=== PATIENT | female | born 1960 | race Two or more races ===

== ENCOUNTER 2020-11-01 14:58 | Emergency (ER) | payer OTHER ==
[~2020-11-01] VITALS: Ht 157.5 cm; Wt 52.6 kg
[~2020-11-01 14:58] MED LIST: CLONAZEPAM0.5 MG PO; COZAAR50 MG; CYMBALTA60 MG PO; EVISTA60 MG PO; LANTUS100 U/ML; NOVOLOG100 U/M1; WELLBUTRIN SR200 MG PO
== END 2020-11-01 16:37 | disposition home or self-care (01) ==
LOC: ER 14:58
DX: G89.11 Acute pain due to trauma (principal); M25.561 Pain in right knee; M79.672 Pain in left foot; M25.562 Pain in left knee

== ENCOUNTER 2020-11-04 14:10 | Outpatient (CLI) | payer OTHER | END 2020-11-04 14:38 | disposition home or self-care (01) | LOC: RAD 14:10 | PROVIDERS: ATTEND Internal Medicine | DX: I11.9 Hypertensive heart disease without heart failure (principal) ==

== ENCOUNTER 2020-12-09 13:44 | Emergency (ER) | payer OTHER ==
[~2020-12-09] VITALS: Ht 157.5 cm; Wt 52.2 kg
[2020-12-09] MEDS ORDERED: TOPROL XL25 M1 (14:25)
[2020-12-09] MEDS ORDERED: ENALAPRIL MALEA10 MG (14:25)
[2020-12-09] MEDS ORDERED: KETO10TA2 PO (18:04)
[2020-12-09] MEDS ORDERED: ORPHENADRINE C100 MG PO (18:04)
== END 2020-12-09 18:14 | disposition home or self-care (01) ==
LOC: ER 13:44
DX: M25.551 Pain in right hip (principal)

== ENCOUNTER 2020-12-14 10:50 | Emergency (ER) | payer OTHER ==
[~2020-12-14] VITALS: Ht 160 cm; Wt 52.2 kg
[~2020-12-14 10:50] MED LIST changes: +ENALAPRIL MALEA10 MG; +KETO10TA2 PO; +ORPHENADRINE C100 MG PO; +TOPROL XL25 M1
== END 2020-12-14 14:40 | disposition home or self-care (01) ==
LOC: ER 10:50
DX: S00.03XA Contusion of scalp, initial encounter (principal); M54.2 Cervicalgia; W18.09XA Striking against other object with subsequent fall, initial encounter; Y93.89 Activity, other specified; Y92.018 Other place in single-family (private) house as the place of occurrence of the external cause; Y99.8 Other external cause status

== ENCOUNTER 2021-02-27 13:43 | Emergency (ER) | payer OTHER ==
[~2021-02-27] VITALS: Ht 157.5 cm; Wt 52.6 kg
== END 2021-02-27 17:10 | disposition home or self-care (01) ==
LOC: ER 13:43
DX: S60.222A Contusion of left hand, initial encounter (principal); W22.8XXA Striking against or struck by other objects, initial encounter; Y93.01 Activity, walking, marching and hiking; Y92.488 Other paved roadways as the place of occurrence of the external cause; Y99.8 Other external cause status

== ENCOUNTER 2021-03-12 08:39 | Emergency (ER) | payer OTHER ==
[~2021-03-12] VITALS: Ht 157.5 cm; Wt 53.1 kg
[2021-03-12] MEDS ORDERED: BUSPIRONE HCL10 MG PO (09:17)
[2021-03-12] MEDS ORDERED: GABAPENTIN300 M2 PO (09:17)
[2021-03-12] MEDS ORDERED: VITAMIN D310 MCG/1 M (09:18)
[2021-03-12] MEDS ORDERED: SEMGLEE100 UNIT/1 (09:18)
[2021-03-12] MEDS ORDERED: ADMELOG100 UNIT/1 SQ (09:18)
[2021-03-12] MEDS ORDERED: TOPROL XL25 M1 PO (09:19)
== END 2021-03-12 13:49 | disposition home or self-care (01) ==
LOC: ER 08:39
DX: B34.9 Viral infection, unspecified (principal); R09.81 Nasal congestion; R05 Cough; R53.81 Other malaise; Z11.52 Encounter for screening for COVID-19

== ENCOUNTER 2021-03-14 19:24 | Emergency (ER) | payer OTHER ==
[~2021-03-14] VITALS: Ht 157.5 cm; Wt 52.6 kg
[~2021-03-14 19:24] MED LIST changes: +ADMELOG100 UNIT/1 SQ; +BUSPIRONE HCL10 MG PO; +GABAPENTIN300 M2 PO; +SEMGLEE100 UNIT/1; +TOPROL XL25 M1 PO; +VITAMIN D310 MCG/1 M
[2021-03-14] MEDS ORDERED: BUDESONIDE0.5 MG/2 M IH (22:26)
[2021-03-14] MEDS ORDERED: MUCINEX DM ER1 EAC1 PO (22:26)
[2021-03-14] MEDS ORDERED: LEVALBUTER0.63 MG/3 IH (22:26)
[2021-03-14] MEDS ORDERED: ZYRTEC10 MG PO (22:26)
== END 2021-03-14 23:25 | disposition home or self-care (01) ==
LOC: ER 19:24
DX: J40 Bronchitis, not specified as acute or chronic (principal); J06.9 Acute upper respiratory infection, unspecified; B34.9 Viral infection, unspecified

== ENCOUNTER 2021-05-11 12:38 | Emergency (ER) | payer OTHER ==
[~2021-05-11] VITALS: Ht 157.5 cm; Wt 53.1 kg
[~2021-05-11 12:38] MED LIST changes: +BUDESONIDE0.5 MG/2 M IH; +LEVALBUTER0.63 MG/3 IH; +MUCINEX DM ER1 EAC1 PO; +ZYRTEC10 MG PO
== END 2021-05-11 13:13 | disposition home or self-care (01) ==
LOC: ER 12:38
DX: S61.441A Puncture wound with foreign body of right hand, initial encounter (principal); W45.8XXA Other foreign body or object entering through skin, initial encounter; Y93.89 Activity, other specified; Y92.89 Other specified places as the place of occurrence of the external cause; Y99.8 Other external cause status

== ENCOUNTER 2021-07-03 15:51 | Emergency (ER) | payer OTHER ==
[~2021-07-03] VITALS: Ht 157.5 cm; Wt 51.7 kg
== END 2021-07-04 10:54 | disposition home or self-care (01) ==
LOC: ER 15:51
DX: A05.9 Bacterial foodborne intoxication, unspecified (principal)

== ENCOUNTER 2021-08-25 15:07 | Outpatient (CLI) | payer OTHER | END 2021-08-25 15:18 | disposition home or self-care (01) | LOC: RAD 15:07 | PROVIDERS: ATTEND Internal Medicine | DX: R05.8 Other specified cough (principal) ==

== ENCOUNTER 2021-09-04 03:11 | Inpatient (IN) | payer OTHER ==
[~2021-09-04] VITALS: Ht 157.5 cm; Wt 49.9 kg
[2021-09-06] MEDS ORDERED: ENALAPRIL MALEA10 MG (08:40)
[2021-09-06] MEDS ORDERED: DULOXETINE HCL60 MG (08:40)
[2021-09-06] MEDS ORDERED: BUPROPION XL300 MG (08:40)
[2021-09-06] MEDS ORDERED: BUSPIRONE HCL10 MG (08:40)
[2021-09-06] MEDS ORDERED: MIRTAZAPINE15 MG (08:40)
[2021-09-06] MEDS ORDERED: CALTRATE 600+D1 EAC1 (08:41)
[2021-09-06] MEDS ORDERED: MELATONIN10 M5 (08:41)
[2021-09-08] MEDS ORDERED: XARELTO10 MG PO (14:50)
[2021-09-08] MEDS ORDERED: GABAPENTIN300 M2 PO (14:52)
[2021-09-08] MEDS ORDERED: OXYC1TAB9 PO (14:52)
[2021-09-08] MEDS ORDERED: CALTRATE 600+D1 EAC1 PO (14:53)
[2021-09-08] MEDS ORDERED: BISACODYL5 MG PO (14:53)
[2021-09-08] MEDS ORDERED: Lantus 1000 UNITS/10 SUBCUTANEO (14:58)
[2021-09-08] MEDS ORDERED: HUMALOG100 UNIT/1 SUBCUTANEO (14:58)
[2021-09-08] MEDS ORDERED: LANTUS SOL100 UNIT/1 SUBCUTANEO (14:58)
== END 2021-09-08 20:08 | DRG 480 ==
LOC: ER 03:11 → MEDJ 12:46 → SURH 09-07 15:37
PROVIDERS: ADMIT Orthopaedic Surgery; ATTEND Orthopaedic Surgery
PROC: BW2GZZZ Computerized Tomography (CT Scan) of Pelvic Region (ICD-10-PCS; 2021-09-04)
PROC: 4A12X4Z Monitoring of Cardiac Electrical Activity, External Approach (ICD-10-PCS; 2021-09-04)
PROC: 0QS636Z Reposition Right Upper Femur with Intramedullary Internal Fixation Device, Percutaneous Approach (ICD-10-PCS; principal; 2021-09-07 12:00)
DX: S72.141A Displaced intertrochanteric fracture of right femur, initial encounter for closed fracture (principal); U07.1 COVID-19; M25.551 Pain in right hip; E03.8 Other specified hypothyroidism; I10 Essential (primary) hypertension; E11.9 Type 2 diabetes mellitus without complications; Z79.4 Long term (current) use of insulin

== ENCOUNTER 2021-10-08 13:55 | Outpatient (CLI) | payer OTHER ==
[~2021-10-08 13:55] MED LIST changes: +BISACODYL5 MG PO; +BUPROPION XL300 MG; +BUSPIRONE HCL10 MG; +CALTRATE 600+D1 EAC1; +CALTRATE 600+D1 EAC1 PO; +DULOXETINE HCL60 MG; +HUMALOG100 UNIT/1 SUBCUTANEO; +LANTUS SOL100 UNIT/1 SUBCUTANEO; +Lantus 1000 UNITS/10 SUBCUTANEO; +MELATONIN10 M5; +MIRTAZAPINE15 MG; +OXYC1TAB9 PO; +XARELTO10 MG PO
== END 2021-10-08 14:10 | disposition home or self-care (01) ==
LOC: RAD 13:55
PROVIDERS: ATTEND Orthopaedic Surgery
DX: M25.561 Pain in right knee (principal); M54.41 Lumbago with sciatica, right side

== ENCOUNTER 2021-11-03 14:52 | Outpatient (CLI) | payer OTHER | END 2021-11-03 15:03 | disposition home or self-care (01) | LOC: RAD 14:52 | PROVIDERS: ATTEND Physical Medicine & Rehabilitation Hospice and Palliative Medicine | DX: M25.551 Pain in right hip (principal); S72.111A Displaced fracture of greater trochanter of right femur, initial encounter for closed fracture ==

== ENCOUNTER → 2021-11-18 | Emergency (ER) | payer OTHER ==
[~2021-11-18] VITALS: Ht 157.5 cm; Wt 51.7 kg
== END | disposition left against medical advice (07) ==
LOC: ER 23:14
DX: Z53.21 Procedure and treatment not carried out due to patient leaving prior to being seen by health care provider (principal)

== ENCOUNTER 2022-02-14 07:51 | Outpatient (CLI) | payer OTHER | END 2022-02-14 08:03 | disposition home or self-care (01) | LOC: SONOGRAMA 07:51 | PROVIDERS: ATTEND Internal Medicine | DX: K76.0 Fatty (change of) liver, not elsewhere classified (principal) ==

== ENCOUNTER 2022-05-30 13:07 | Emergency (ER) | payer OTHER ==
[~2022-05-30] VITALS: Ht 154.9 cm; Wt 49.4 kg
[2022-05-30] MEDS ORDERED: LANTUS SOL100 UNIT/1 SQ (13:22)
[2022-05-30] MEDS ORDERED: WELLBUTRIN XL300 MG PO (13:23)
[2022-05-30] MEDS ORDERED: HUMALOG100 UNIT/2 SQ (13:23)
[2022-05-30] MEDS ORDERED: TOPROL XL50 M1 PO (13:23)
[2022-05-30] MEDS ORDERED: CYMBALTA60 MG PO (13:24)
[2022-05-30] MEDS ORDERED: NEURONTIN300 MG PO (13:24)
[2022-05-30] MEDS ORDERED: CIPRO500 MG PO (15:39)
== END 2022-05-30 16:04 | disposition home or self-care (01) ==
LOC: ER 13:07
DX: M54.59 Other low back pain (principal); N39.0 Urinary tract infection, site not specified; R07.89 Other chest pain; E11.9 Type 2 diabetes mellitus without complications; I10 Essential (primary) hypertension; F32.9 Major depressive disorder, single episode, unspecified; M79.7 Fibromyalgia

== ENCOUNTER 2022-05-31 09:09 | Outpatient (CLI) | payer OTHER ==
[~2022-05-31 09:09] MED LIST changes: +CIPRO500 MG PO; +HUMALOG100 UNIT/2 SQ; +LANTUS SOL100 UNIT/1 SQ; +NEURONTIN300 MG PO; +TOPROL XL50 M1 PO; +WELLBUTRIN XL300 MG PO
== END 2022-05-31 09:15 | disposition home or self-care (01) ==
LOC: TOM 09:09
PROVIDERS: ATTEND Internal Medicine
DX: L02.415 Cutaneous abscess of right lower limb (principal); N28.1 Cyst of kidney, acquired
CPT/HCPCS: 74178; Q9965

== ENCOUNTER 2022-06-13 12:44 | Emergency (ER) | payer OTHER ==
[~2022-06-13] VITALS: Ht 157.5 cm; Wt 50.8 kg
== END 2022-06-13 17:33 | disposition home or self-care (01) ==
LOC: ER 12:44
DX: M25.561 Pain in right knee (principal); E11.9 Type 2 diabetes mellitus without complications; Z79.4 Long term (current) use of insulin; Z79.84 Long term (current) use of oral hypoglycemic drugs

== ENCOUNTER 2022-08-02 09:49 | Outpatient (CLI) | payer OTHER | END 2022-08-02 09:54 | disposition home or self-care (01) | LOC: MAMO-SONO 09:49 | PROVIDERS: ATTEND Internal Medicine | DX: N63.0 Unspecified lump in unspecified breast (principal); R92.0 Mammographic microcalcification found on diagnostic imaging of breast ==

== ENCOUNTER 2022-08-12 15:39 | Outpatient (CLI) | payer OTHER | END 2022-08-12 15:45 | disposition home or self-care (01) | LOC: RAD 15:39 | PROVIDERS: ATTEND Internal Medicine | DX: M79.675 Pain in left toe(s) (principal); M12.9 Arthropathy, unspecified ==

== ENCOUNTER 2022-11-20 18:31 | Emergency (ER) | payer OTHER ==
[~2022-11-20] VITALS: Ht 157.5 cm; Wt 61.2 kg
[2022-11-20] MEDS ORDERED: VASOTEC2.5 MG (18:52)
[2022-11-20] MEDS ORDERED: METAXALONE800 MG PO (23:21)
[2022-11-20] MEDS ORDERED: CELEBREX200MG PO (23:21)
[2022-11-20] MEDS ORDERED: MEDROLPACK PO (23:21)
[2022-11-20] MEDS ORDERED: ACETAMINOPHEN650 M2 PO (23:21)
== END 2022-11-20 23:39 | disposition home or self-care (01) ==
LOC: ER 18:31
DX: S13.4XXA Sprain of ligaments of cervical spine, initial encounter (principal); G44.89 Other headache syndrome; E11.9 Type 2 diabetes mellitus without complications; Z79.4 Long term (current) use of insulin; I10 Essential (primary) hypertension

== ENCOUNTER 2023-04-05 11:25 | Outpatient (CLI) | payer OTHER ==
[~2023-04-05 11:25] MED LIST changes: +ACETAMINOPHEN650 M2 PO; +CELEBREX200MG PO; +MEDROLPACK PO; +METAXALONE800 MG PO; +VASOTEC2.5 MG
== END 2023-04-05 11:31 | disposition home or self-care (01) ==
LOC: MRI 11:25
PROVIDERS: ATTEND Psychiatry & Neurology Neurology
DX: E07.0 Hypersecretion of calcitonin (principal)
CPT/HCPCS: 70551

== ENCOUNTER → 2023-11-02 | Outpatient (CLI) | payer OTHER | END | disposition home or self-care (01) | LOC: TOM 16:03 | PROVIDERS: ATTEND Psychiatry & Neurology Neurology | DX: M25.551 Pain in right hip (principal); S09.90XD Unspecified injury of head, subsequent encounter ==

== ENCOUNTER 2023-11-22 13:34 | Outpatient (CLI) | payer OTHER | END 2023-11-22 13:46 | disposition home or self-care (01) | LOC: MRI 13:34 | PROVIDERS: ATTEND Orthopaedic Surgery | DX: M54.41 Lumbago with sciatica, right side (principal) | CPT/HCPCS: 72148 ==

== ENCOUNTER 2023-11-22 14:41 | Emergency (ER) | payer OTHER ==
[~2023-11-22] VITALS: Ht 157.5 cm; Wt 52.2 kg
[2023-11-22] MEDS ORDERED: KETOROLAC TROMETHAMINE 15 MG VIAL IM STA (17:01)
== END 2023-11-22 20:01 | disposition home or self-care (01) ==
LOC: ER 14:41
DX: M79.671 Pain in right foot (principal)
CPT/HCPCS: 73620; 96372; 99283; J1885

== ENCOUNTER 2024-04-11 08:54 | Outpatient (CLI) | payer OTHER | END 2024-04-11 08:55 | disposition home or self-care (01) | LOC: NUCLEAR 08:54 | PROVIDERS: ATTEND Physical Medicine & Rehabilitation | DX: M13.0 Polyarthritis, unspecified (principal) | CPT/HCPCS: 78315; A9503 ==

== ENCOUNTER 2024-05-23 12:27 | Outpatient (CLI) | payer OTHER | END 2024-05-23 12:32 | disposition home or self-care (01) | LOC: RAD 12:27 | PROVIDERS: ATTEND Physical Medicine & Rehabilitation | DX: S72.91XD Unspecified fracture of right femur, subsequent encounter for closed fracture with routine healing (principal); M54.6 Pain in thoracic spine; M54.50 Low back pain, unspecified ==

== ENCOUNTER 2024-06-06 13:57 | Outpatient (CLI) | payer OTHER | END 2024-06-06 14:01 | disposition home or self-care (01) | LOC: RAD 13:57 | PROVIDERS: ATTEND General Practice | DX: M54.2 Cervicalgia (principal); V89.2XXD Person injured in unspecified motor-vehicle accident, traffic, subsequent encounter; R51.9 Headache, unspecified; M54.50 Low back pain, unspecified ==

== ENCOUNTER 2024-08-30 09:43 | Emergency (ER) | payer OTHER ==
[~2024-08-30] VITALS: Ht 154.9 cm; Wt 52.2 kg
[2024-08-30] MEDS ORDERED: CEFTRIAXONE SODIUM 1,000 MG VIAL IM STA (10:59)
[2024-08-30] MEDS ORDERED: CEFTRIAXONE SODIUM 1,000 MG VIAL ONE (11:03)
[2024-08-30 11:31] LABS: HEMATOCRIT 38.6 % (36.0-45.00); HEMOGLOBIN 13.2 g/dL (12.0-15.00); MEAN CELL VOLUME 90.1 fL (80.00-100.00); MEAN CORPUSCULAR HEMOGLOBIN 30.7 pg (27.00-32.0); MEAN CORPUSCULAR HGB CONC 34.1 g/dl (32.0-36.0); PLATELET COUNT 241 K/uL (150-450); RED BLOOD COUNT 4.29 M/uL (4.00-6.00); RED CELL DISTRIBUTION WIDTH 13.9 % (11.5-14.5)
== END 2024-08-30 12:56 | disposition home or self-care (01) ==
LOC: ER 09:45
PROVIDERS: General Practice
DX: S90.415A Abrasion, left lesser toe(s), initial encounter (principal); W22.8XXA Striking against or struck by other objects, initial encounter; Y93.89 Activity, other specified; Y92.89 Other specified places as the place of occurrence of the external cause; S93.509A Unspecified sprain of unspecified toe(s), initial encounter
CPT/HCPCS: 36415; 73620; 96372; 99283; J0696

== ENCOUNTER 2024-09-20 09:56 | Outpatient (CLI) | payer OTHER | END 2024-09-20 10:03 | disposition home or self-care (01) | LOC: SONOGRAMA 09:56 | PROVIDERS: ATTEND Internal Medicine Gastroenterology | DX: R74.01 Elevation of levels of liver transaminase levels (principal) ==

== ENCOUNTER → 2024-11-09 | Emergency (ER) | payer OTHER ==
[~2024-11-09] VITALS: Ht 154.9 cm; Wt 52.2 kg
[~2024-11-09] MED LIST changes: +CEFAZOLIN SODIUM 1,000 MG VIAL IM ONE; +COZAAR25 MG PO; +TOPROL XL50 M1
[2024-11-09 09:28] LABS: URINE APPEARANCE Clear; URINE BILIRRUBIN Negative (NEGATIVE); URINE BLOOD Negative; URINE COLOR Yellow; URINE KETONE Negative (NEGATIVE); URINE LEUKOCYTE Negative; URINE NITRATE Negative; URINE PROTEIN Negative (NEGATIVE); URINE UROBILINOGEN 0.2 E.U./dl
[2024-11-09 09:32] LABS: URINE BACTERIA 6.1 uL (0.0-1933); URINE WBC 2.3 uL (0.0-23.2)
[2024-11-09 09:50] LABS: URINE EPITHELIAL CELLS 1.2 uL (0.0-38.8); URINE GLUCOSE 250 MG/DL (NEGATIVE)
[2024-11-09 10:17] LABS: HEMATOCRIT 39.3 % (36.0-45.00); HEMOGLOBIN 13.4 g/dL (12.0-15.00); MEAN CELL VOLUME 90.1 fL (80.00-100.00); MEAN CORPUSCULAR HEMOGLOBIN 30.7 pg (27.00-32.0); PLATELET COUNT 251 K/uL (150-450); RED BLOOD COUNT 4.37 M/uL (4.00-6.00); RED CELL DISTRIBUTION WIDTH 13.6 % (11.5-14.5)
[2024-11-09 10:37] LABS: CALCIUM 10.2 mg/dL (8.5-10.1); CREATININE SERUM 1.02 mg/dL (0.55-1.02); GFR 54.22; POTASSIUM 4.81 mEq/L (3.5-5.1)
== END | disposition home or self-care (01) ==
LOC: ER 07:07
PROVIDERS: General Practice
DX: M54.50 Low back pain, unspecified (principal); S90.812A Abrasion, left foot, initial encounter; W18.39XA Other fall on same level, initial encounter; Y93.89 Activity, other specified; Y92.018 Other place in single-family (private) house as the place of occurrence of the external cause; E11.9 Type 2 diabetes mellitus without complications; Z79.4 Long term (current) use of insulin
CPT/HCPCS: 36415; 96372; 99282; J0690

== ENCOUNTER 2025-02-04 12:12 | Emergency (ER) | payer OTHER ==
[~2025-02-04] VITALS: Ht 154.9 cm; Wt 54.0 kg
[~2025-02-04 12:12] MED LIST changes: -CEFAZOLIN SODIUM 1,000 MG VIAL IM ONE
[2025-02-04] MEDS ORDERED: LIPITOR40 M1 PO (12:58)
[2025-02-04] MEDS ORDERED: PROTONIX40 MG PO (13:34)
[2025-02-04] MEDS ORDERED: CEFUROXIME500 MG PO (13:34)
[2025-02-04] MEDS ORDERED: CEFTRIAXONE SODIUM 1,000 MG VIAL ONE (13:45)
[2025-02-04] MEDS ORDERED: LIDOCAINE HCL 1% 10ML VIAL ONE (13:45)
[2025-02-04] MEDS ORDERED: CEFTRIAXONE SODIUM 1,000 MG VIAL IM ONE (13:45)
== END 2025-02-04 14:45 | disposition home or self-care (01) ==
LOC: ER 12:12
DX: M79.604 Pain in right leg (principal); I10 Essential (primary) hypertension; E11.9 Type 2 diabetes mellitus without complications; Z79.4 Long term (current) use of insulin

== ENCOUNTER 2025-03-18 17:13 | Emergency (ER) | payer OTHER ==
[~2025-03-18] VITALS: Ht 154.9 cm; Wt 52.2 kg
[~2025-03-18 17:13] MED LIST changes: +CEFUROXIME500 MG PO; +LIPITOR40 M1 PO; +PROTONIX40 MG PO
[2025-03-18 18:07] VITALS: BP 127/69; O2SAT 99
[2025-03-18] MEDS ORDERED: KETOROLAC TROMETHAMINE 30 MG VIAL IM ONE (19:45)
[2025-03-18] MEDS ORDERED: NORFLEX100MG PO (21:31)
== END 2025-03-18 23:14 | disposition home or self-care (01) ==
LOC: ER 17:13
DX: S70.01XA Contusion of right hip, initial encounter (principal); T14.8XXA Other injury of unspecified body region, initial encounter; W19.XXXA Unspecified fall, initial encounter; Y93.89 Activity, other specified; Y92.89 Other specified places as the place of occurrence of the external cause; Y99.8 Other external cause status; I10 Essential (primary) hypertension; E11.9 Type 2 diabetes mellitus without complications; Z79.4 Long term (current) use of insulin

== ENCOUNTER 2025-04-08 12:29 | Outpatient (CLI) | payer OTHER ==
[~2025-04-08 12:29] MED LIST changes: +NORFLEX100MG PO
== END 2025-04-08 12:31 | disposition home or self-care (01) ==
LOC: RAD 12:29
PROVIDERS: ATTEND Internal Medicine Rheumatology
DX: M81.0 Age-related osteoporosis without current pathological fracture (principal)

== ENCOUNTER 2025-05-26 11:46 | Emergency (ER) | payer OTHER ==
[~2025-05-26] VITALS: Ht 154.9 cm; Wt 53.1 kg
[2025-05-26] MEDS ORDERED: MECLIZINE HCL 25 MG TABLET PO ONE ×2 (12:15→12:57)
[2025-05-26] MEDS ORDERED: 0.9 % SODIUM CHLORIDE 1,000 ML IV SCH (12:15)
[2025-05-26 13:34] LABS: BASO % 0.2 % (0.1-1.2); EOS # 0.01 (0.04-0.54); EOS % 0.1 % (0.7-7.0); LYMPH # 0.85 (1.18-3.74); LYMPH % 7.5 % (19.3-53.1); MEAN PLATELET VOLUME 10.70 fl (9.4-12.4); MONO # 0.99 (0.24-0.82); MONO % 8.8 % (4.7-12.5); NEUT # 9.36 (1.56-6.13); NEUT % 82.9 % (34.0-71.1); RED CELL DISTRIBUTION WIDTH 12.9 % (11.6-14.4)
[2025-05-26 14:00] LABS: BUN CREA RATIO 19.0 (7.0-25.0); CREATININE SERUM 1.06 mg/dL (0.55-1.02); GFR 51.86; OSMOLALITY SERUM 286.0 MOSM/KG (275-295)
[2025-05-26 14:05] LABS: URINE APPEARANCE Cloudy; URINE BILIRRUBIN Negative (NEGATIVE); URINE BLOOD NHT; URINE COLOR Yellow; URINE KETONE 15 (NEGATIVE); URINE LEUKOCYTE Moderate; URINE NITRATE Positive; URINE PROTEIN Negative (NEGATIVE); URINE UROBILINOGEN 0.2 E.U./dl
[2025-05-26 14:11] LABS: URINE BACTERIA 4571.6 uL (0.0-1933); URINE EPITHELIAL CELLS 13.6 uL (0.0-38.8); URINE RBC 12.9 uL (0.0-20.8); URINE WBC 2428.7 uL (0.0-23.2)
[2025-05-26 14:23] LABS: GLUCOSE FASTING 298.0 mg/dL (65-100)
[2025-05-26 14:24] LABS: URINE CAST 0.29 uL (0.0-1.40); URINE GLUCOSE >=1000 MG/DL (NEGATIVE)
[2025-05-26 14:29] LABS: COVID-19 AG NEGATIVE (NEGATIVE)
[2025-05-26] MEDS ORDERED: CEFTRIAXONE SODIUM 1,000 MG VIAL IV ONE (15:00)
[2025-05-26] MEDS ORDERED: CEFTRIAXONE SODIUM 1,000 MG VIAL ONE (15:20)
== END 2025-05-26 15:43 | disposition home or self-care (01) ==
LOC: ER 11:46
PROVIDERS: Emergency Medicine
DX: N39.0 Urinary tract infection, site not specified (principal); R11.10 Vomiting, unspecified; R42 Dizziness and giddiness; Z20.822 Contact with and (suspected) exposure to COVID-19; I10 Essential (primary) hypertension; E11.9 Type 2 diabetes mellitus without complications; Z79.4 Long term (current) use of insulin
CPT/HCPCS: 36415; 70450; 71045; 96365; 96366; 99284; J0696; J7030